=== PATIENT | female | born 1980 | race Two or more races ===

== ENCOUNTER 2021-01-09 19:20 | Emergency (ER) | payer OTHER ==
[2021-01-09 19:32] VITALS: BP 107/68; PULSE 69; TEMP 97; BMI 25.4
[2021-01-09 21:04] LABS: BASO % 0.6 % (0-2.0); EOS % 0.6 % (0-4.5); HEMATOCRIT 40.6 % (32.4-45.2); LYMPH % 41.1 % (8-40); MCH 31.8 pg (25.7-33.7); MCHC 34.5 g/dl (32.0-36.0); MEAN CELL VOLUME 92.2 fl (80-96); MEAN PLT VOLUME 9.1 fl (7.5-11.1); MONO % 10.3 % (3.8-10.2); NEUT % 47.4 % (42.8-82.8); PLATELET COUNT 227 10^3/uL (134-434); RDW 12.5 % (11.6-15.6)
[2021-01-09 21:12] LABS: PH,URINE 7.5 (5.0-8.0); URINE APPEARANCE CLEAR; URINE BILIRUBIN NEGATIVE (NEGATIVE); URINE COLOR YELLOW; URINE GLUCOSE (UA) NEGATIVE (NEGATIVE); URINE KETONE NEGATIVE (NEGATIVE); URINE LEUK ESTERASE NEGATIVE (NEGATIVE); URINE NITRITE NEGATIVE (NEGATIVE); URINE PROTEIN NEGATIVE (NEGATIVE); URINE UROBILINOGEN 0.2 mg/dL (0.2-1.0)
[2021-01-09 21:22] LABS: CHLORIDE 109 mmol/L (98-107); SODIUM 142 mmol/L (136-145)
[2021-01-09 21:24] LABS: ANION GAP 3 MMOL/L (8-16); BLOOD UREA NITROGEN 10.3 mg/dL (7-18); CALCIUM 9.3 mg/dL (8.5-10.1); CO2 30 mmol/L (21-32); GLUCOSE,RANDOM 88 mg/dL (74-106)
[2021-01-09 21:27] LABS: SGOT/AST 21 U/L (15-37); SGPT/ALT 22 U/L (13-61)
[2021-01-09 21:28] LABS: CREATININE 0.7 mg/dL (0.55-1.3)
[2021-01-09 21:29] LABS: BILIRUBIN,TOTAL 1.1 mg/dL (0.2-1); TOT PROT 7.6 g/dl (6.4-8.2)
[2021-01-09 21:30] LABS: ALK PHOS 82 U/L (45-117)
[2021-01-09] MEDS ORDERED: LACTATED RINGERS SOLUTION 1000 ML INFUS.BAG IV ONE (21:57)
== END 2021-01-09 23:37 | disposition home or self-care (01) ==
LOC: JER 19:20
DX: R53.1 Weakness (principal); R53.83 Other fatigue
CPT/HCPCS: 36415; 71046-TC-FY; 80053; 81003; 84443; 84484; 84703; 85025; 87086; 93005; 93010; 99284-25

== ENCOUNTER 2021-06-26 16:36 | Emergency (ER) | payer OTHER ==
[2021-06-26 16:52] VITALS: BP 101/57; PULSE 74; TEMP 97.9; BMI 26.4
[2021-06-26] MEDS ORDERED: KETOROLAC TROMETHAMINE 15 MG/ML VIAL IM ONE (17:26)
[2021-06-26] MEDS ORDERED: diazePAM 2 MG TABLET PO ONE (17:27)
[2021-06-26] MEDS ORDERED: LIDOCAINE 5% TOPICAL PATCH TP ONE (17:27)
[2021-06-26] MEDS ORDERED: diazePAM 2 MG TABLET ONE (17:35)
[2021-06-26] MEDS ORDERED: KETOROLAC TROMETHAMINE 15 MG/ML VIAL ONE (17:36)
[2021-06-26] MEDS ORDERED: LIDOCAINE 5% TOPICAL PATCH ONE (17:36)
[2021-06-26] MEDS ORDERED: LIDOCAINE PATCH REMOVAL MC SCH (22:00)
== END 2021-06-26 18:10 | disposition home or self-care (01) ==
LOC: JERFT 16:36
PROC: 3E023GC Introduction of Other Therapeutic Substance into Muscle, Percutaneous Approach (ICD-10-PCS; principal; 2021-06-26)
DX: M62.838 Other muscle spasm (principal); M25.512 Pain in left shoulder
CPT/HCPCS: 73030-TC-LT-FY; 99284-25

== ENCOUNTER 2021-11-05 04:46 | Emergency (ER) | payer OTHER ==
[2021-11-05 05:25] VITALS: BP 122/79; PULSE 78; TEMP 98.6; BMI 25.2
== END 2021-11-05 05:44 | disposition left against medical advice (07) ==
LOC: JER 04:46
DX: R20.2 Paresthesia of skin (principal)
CPT/HCPCS: 99281-25